=== PATIENT | female | born 1980 | race Hispanic/Latino ===

== ENCOUNTER → 2021-04-20 09:43 | Outpatient (CLI) | payer OTHER, SELFPAY ==
[2021-04-20 10:42] LABS: COVID19 -Nasal RAPID Negative (Negative)
== END ==
PROVIDERS: Visit Provider Obstetrics & Gynecology
DX: Z01.812 Encounter for preprocedural laboratory examination (principal); Z20.822 Contact with and (suspected) exposure to COVID-19
CPT/HCPCS: 87635

== ENCOUNTER 2021-04-21 08:56 | Day surgery (SDC) | payer OTHER, SELFPAY ==
[2021-04-18 13:10] VITALS: BMI 31.6
[2021-04-21] VITALS (7 sets, daily range): BP systolic 117–133; BP diastolic 61–78; PULSE 64–99; RESP 13–17; TEMP 36.9–37.3; O2SAT 97–100; BMI 31.6
--- NOTE | 2021-04-21 | PATH_ITS ---
[facility] Accession Number: [id number] . 01 Material submitted: . PART A: endocervix - ENDOCERVICAL MASS PART B: endometrium - ENDOMETRIAL CURETTINGS . 02 Diagnosis: A. 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 Negative for significant cytologic atypia, increased mitotic activity, or necrosis. . B. Endometrial Curettings: Portions of shedding endometrium; negative for glandular hyperplasia, cytologic atypia, or malignancy. Some endometrial fragments demonstrate prominent vessels, suggestive of polyp, if clinical and imaging studies are concordant. Polypoid portions of lower uterine segment; negative for glandular hyperplasia, cytologic atypia, or malignancy. [facility] 04/25/2021 1339 Local . 02 Electronically signed: . Elida Finnegan MD, Pathologist NPI- [id number] . 01 Gross description: . A. The specimen is received in formalin, labeled endocervical mass, and consists of a 2.5 x 2.0 x 1.8 cm, solis-pink, focally nodular fragment of soft tissue. The margin is inked blue. The specimen is serially sectioned and entirely submitted in cassettes A1-A4. B. The specimen is received in formalin, labeled endometrial curettings, and consists of multiple red-brown fragments of soft tissue measuring 3.0 x 2.5 x 0.6 cm in aggregate. The specimen is filtered and entirely submitted in cassette B1. ([id number]) /FRCordelia 04/22/2021 1624 Local . 02 Pathologist provided ICD-10: D25.9 . 02 CPT . 214416, [id number] Performed at: 01 [facility] [address] [place] [address], [place], [place] [id number] MD Ryan Garcia MD Phone: [phone] Performed at: 02 [facility] [address] [place] [id number] MD Vonda Hanley MD Phone: [phone]
[2021-04-21] MEDS: LACTATED RINGERS 1,000 ML 100 ML IV (10:01)
--- NOTE | 2021-04-21 11:41 | P.HPOB_ITS ---
History of Present Illness History of Present Illness Reason for admission: vaginal bleeding Narrative: Jennifer is a 40-year-old [place]-speaking , with several month history of abnormal uterine bleeding who presents today for evaluation in referral from her primary care provider, Dr. Deepa Krause, for evaluation and management of her abnormal bleeding which has been found to be associated with a prolapsed submucous/endocervical myoma. ? her periods have been heavy for many many years with flooding and over flows, and was found to be anemic which was thought to be secondary to her heavy periods. she was initiated on Depo-Provera in October and had daily spotting for the 1st month noted only on wiping and did need a knee need to use a pad but became heavier with clots in December and lower abdominal pain associated with odor and discharge. She was seen by an OBGYN? At [facility] who noted a prolapsed myoma and was scheduled for hysteroscopy and D&C with resection of the? prolapsed myoma.? Unfortunately due to insurance issues, she cannot continue her care at that facility and instead presents today for evaluation, and management here.? The patient is [place]- speaking only and the visit was conducted with the assistance of a remote telephonic [place]-speaking candy puller.? Records accompany the patient and her Pap smear is both normal and current.? Pelvic ultrasound performed 10/16/2020 showed the uterus to be 11 cm x 6.26 cm x 7.6 cm with an endometrial thickness of 11 mm.? The uterus was felt to be mildly enlarged but the endometrium was within normal physiologic limits.? A 1 cm intramural myoma was seen on the right side anteriorly but otherwise no abnormalities were seen. On exam however the patient is found to have a fleshy polypoid mass extending 2 cm beyond the external cervical os with the origin of the mass either endocervical or endometrial. With the assistance of a remote, telephonic [place]-speaking candy puller, the options regarding further evaluation and/ or management of her abnormal uterine bleeding which is almost certainly being caused by a friable, prolapsed endocervical /endometrial mass, presumably a fibroid, was discussed.? Written information in [place] was provided on the topics of hysteroscopy, uterine fibroids, and endometrial ablation. after consideration of all options, the patient has opted to have hysteroscopy with biopsy/resection of endometrial / endometrial mass, D and C, and endometrial ablation via NovaSure.? She presents today for her scheduled surgery. [facility] Medical History Abnormal uterine bleeding Microcytic anemia Migraine Obesity Prolactinoma, benign Submucous myoma of uterus Surgical History History of tubal ligation Family History Mother Hypertension Father Diabetes mellitus Hypertension Social History household members: spouse Smoking Status: Never smoker alcohol intake: never Meds Home Medications and Allergies Home Medications Medication Instructions Recorded Confirmed Type cabergoline 0.5 mg tablet 0.5 mg PO 2XW 03/17/21 04/21/21 History naproxen 500 mg tablet 500 mg PO BID 03/17/21 04/21/21 History Allergies Allergy/AdvReac Type Severity Reaction Status Date / Time No Known Drug Allergies Allergy Verified 04/21/21 09:17 Review of Systems Review of Systems Narrative: Problem-specific ROS positives included in HPI Exam Vital Signs (past 8 hours): - 04/21/21 09:45 Temperature 98.4 F Pulse Rate 66 Respiratory Rate 16 Blood Pressure 119/78 Pulse Oximetry 100 Oxygen Delivery Method Room Air Const General: cooperative Nutritional Appearance: overweight Orientation: alert and oriented x3 HENMT Head: normocephalic and atraumatic Ears: hearing grossly normal bilaterally Nose: external nose normal Face and sinus: face symmetric Mouth: oral mucosae normal Teeth and gingiva: dentition normal Throat: posterior oropharynx normal Eyes Conjunctivae: conjunctivae normal Sclera: sclerae normal EOM: EOM intact bilaterally Neck Neck: full ROM and trachea midline Thyroid: thyroid normal Lymphatic: No lymphadenopathy Resp Effort & Inspection: normal respiratory effort and able to speak in complete sentences Auscultation: clear to auscultation bilaterally Cardio Rate: regular rate Rhythm: regular rhythm Heart Sounds: S1 normal, S2 normal and no murmurs GI Inspection: normal to inspection Palpation: soft, no hepatosplenomegaly and No tender External Female Exam: normal external appearance Speculum Exam - Vagina: normal appearance of the vagina and abnormal vaginal discharge (Sanguinous mucousy) Speculum Exam - Cervix: cervical os open and other (Friable mass protruding through cervical os) Bimanual Exam- Vagina & Uterus: other (Unable to fully assess due to habitus) Bimanual Exam- Adnexa, other: other (Unable to assess due to habitus) OB/External & Speculum: cervical os open Psych Appearance: grossly normal Mental Status: mental status grossly normal Speech and Movement: speech and movement normal Mood: congruent mood Affect: normal affect Attitude: cooperative Thought Process: normal Thought Content: normal Judgment: judgment good Assessment & Plan Assessment and plan (1) Submucous myoma of uterus: Status: Acute (2) Abnormal uterine bleeding: Status: Acute Plan: The patient was counseled with the assistance of a remote telephonic [place]- speaking candy puller regarding the potential risks, alternatives, benefits, and complications associated with hysteroscopy with biopsies, dilation and curettage of the uterus, and endometrial ablation.? She expresses an understanding of all of the above, numerous questions were answered her satisfaction, and with full understanding a written consent in [place] was executed, signed, and witnessed 04/20/2021. Time Spent With Patient Time with patient: less than 30 minutes Critical Care time: I spent a total of [] minutes of critical care time on this patient's care today; this time is exclusive of procedural time.
--- NOTE | 2021-04-21 11:46 | PM.PREOP ---
Pre-operative Note COVID-19 COVID-19 status: Negative Result date/Date tested (Pos, Neg/Pending): 04/20/21 Interval Note History & Physical reviewed/Exam performed by Physician: Yes Changes to H&P: No
--- NOTE | 2021-04-21 12:21 | SUR.OPER ---
Lithotomy on padded OR bed, head on pillow, arms secured on padded arm boards at <90 degrees abduction. Legs secured in padded yellow fins stirrups.
[2021-04-21] MEDS: LORazepam 2 MG/ML INJ 0.25 MG IV (13:12)
--- NOTE | 2021-04-21 13:30 | PM.GYNOP.1 ---
Operative Date/Time/Diagnoses Date of procedure: 04/21/21 Time of procedure: 11:05 Procedure & Clinicians Procedure: Procedures Operation Date: 04/21/21 10:30 Actual Procedure Side Surgeon p Hysteroscopy D&C w/ excision of Endocervical Mass, and Endometrial Ablation Armando Fam MD Indications: Jennifer is a 40-year-old Malian-speaking , with several month history of abnormal uterine bleeding who presents today for evaluation in referral from her primary care provider, Dr. Deepa Krause, for evaluation and management of her abnormal bleeding which has been found to be associated with a prolapsed submucous/endocervical myoma. ? her periods have been heavy for many many years with flooding and over flows, and was found to be anemic which was thought to be secondary to her heavy periods. she was initiated on Depo-Provera in October and had daily spotting for the 1st month noted only on wiping and did need a knee need to use a pad but became heavier with clots in December and lower abdominal pain associated with odor and discharge. She was seen by an OBGYN? At [facility] who noted a prolapsed myoma and was scheduled for hysteroscopy and D&C with resection of the? prolapsed myoma.? Unfortunately due to insurance issues, she cannot continue her care at that facility and instead presents today for evaluation, and management here.? The patient is Malian-speaking only and the visit was conducted with the assistance of a remote telephonic Malian-speaking director sales and marketing.? Records accompany the patient and her Pap smear is both normal and current.? Pelvic ultrasound performed 10/16/2020 showed the uterus to be 11 cm x 6.26 cm x 7.6 cm with an endometrial thickness of 11 mm.? The uterus was felt to be mildly enlarged but the endometrium was within normal physiologic limits.? A 1 cm intramural myoma was seen on the right side anteriorly but otherwise no abnormalities were seen. On exam however the patient is found to have a fleshy polypoid mass extending 2 cm beyond the external cervical os with the origin of the mass either endocervical or endometrial. With the assistance of a remote, telephonic Malian-speaking director sales and marketing, the options regarding further evaluation and/ or management of her abnormal uterine bleeding which is almost certainly being caused by a friable, prolapsed endocervical /endometrial mass, presumably a fibroid, was discussed.? Written information in Malian was provided on the topics of hysteroscopy, uterine fibroids, and endometrial ablation. after consideration of all options, the patient has opted to have hysteroscopy with biopsy/resection of endometrial / endometrial mass, D and C, and endometrial ablation via NovaSure.? She presents today for her scheduled surgery. Surgeon: Armando Fam Anesthesia Type: General Operative Notes Findings: Upon inspection of the cervix using a speculum introduced into the vagina, a fleshy polypoid appearing mass is seen to protrude 2 cm beyond the external cervical os. With retraction, the broad base of the mass can be visualized and it is seen to be arising from the posterior aspect of the endocervical canal approximately 2.5 cm cephalad of the external os. Once the mass had been removed, visualization of the upper endocervical canal was unremarkable and the endometrium had no focal lesions but was instead a shaggy, thick endometrial surface. Abundant endometrial curettings were obtained and submitted. The smooth, non-distorted endometrial cavity sounded to a depth of 9 cm. Post ablation visualization of the cavity showed good, diffuse ablation effects. Closure Type: not applicable Specimen(s): endometrial curettings and other (Endocervical mass, excised) Estimated blood loss (mL): 50 Blood products transfused: none Procedure in detail: With the patient under satisfactory general endotracheal anesthesia in the modified dorsal lithotomy position, the perineum, vagina, and abdomen were prepped and draped in the usual manner for hysteroscopic surgery. A pre operative safety time-out was taken in accordance with [facility] OR protocol. A bivalve speculum was placed in the vagina and the cervix visualized with the findings as noted above. Once the location of the mass' base had been established, excision of the mass at its base was easily accomplished using electrocautery. Once the mass had been removed the endocervix was inspected with the hysteroscope and using sterile saline as a distention medium, the endometrial cavity was inspected with the findings as noted above. Aside from the shaggy endometrium, the endometrial cavity itself was unremarkable and nondistended. Following performance of a D&C with abundant endometrial curettings obtained, the NovaSure device was introduced into the endometrial cavity with the depth of 6.5 cm and width of 4.6 cm. Cavity integrity testing was confirmatory, and the NovaSure device activated. Duration of the ablation was greater than 65 seconds and following ablation the NovaSure device was removed from the endometrial cavity without difficulty. Examination of the post ablation cavity showed that there was good, diffuse affect of the ablation. The hysteroscope was removed and the single-tooth tenaculum which had been applied to the anterior lip of the cervix, was removed. There was significant bleeding noted from the left sided puncture and a single 2-0 chromic [id number] stitch was used to control that bleeding point. At that point the speculum was removed from the vagina and the patient awakened. She was then transferred to the PACU for a period of recovery having tolerated the procedure well. Complications: none Post-operative Condition: stable Disposition: PACU Plan for aftercare: Routine postoperative care with same-day discharge from PACU when stable.
[2021-04-21] MEDS: OXYCODONE/ACETAMINOPHEN 5/325 TABLET 1 TAB PO (14:15)
[2021-04-21 15:43] LABS: Add Manual Diff / Slide Review NO; Basophils Absolute Auto 0 /uL (0-100); Basophils Percent Auto 0.7 % (0-2); Eosinophils Absolute Auto 0 /uL (0-450); Eosinophils Percent Auto 0.5 % (2-4); Hematocrit 32.8 % (36-46); Hemoglobin 10.2 g/dL (12.0-16.0); Lymphocytes Absolute Auto 1100 /uL (1100-4500); Lymphocytes Percent Auto 26.6 % (25-40); Mean Corpuscular HGB Conc 31.2 % (30-36); Mean Corpuscular Hemoglobin 24.5 PG (26-34); Mean Corpuscular Volume 78.5 fL (80-100); Monocytes Absolute Auto 100 /uL (0-900); Monocytes Percent Auto 2.6 % (3-14); Neutrophils Absolute Auto 2700 /uL (1500-7000); Neutrophils Percent Auto 69.6 % (50-75); Platelet Count 288 X10^3/uL (150-400); Red Blood Cell Count 4.18 X10^6/uL (4.0-5.2); Red Cell Distribution Width 18.2 % (11.6-14.8); White Blood Cell Count 3.9 X10^3/uL (4.5-11.0)
== END 2021-04-21 14:35 | disposition home or self-care (01) ==
PROVIDERS: Referring Provider Obstetrics & Gynecology; Visit Provider Obstetrics & Gynecology
PROC: 0U5B8ZZ Destruction of Endometrium, Via Natural or Artificial Opening Endoscopic (ICD-10-PCS; CPT 58563; principal; 2021-04-21 10:30)
DX: N93.9 Abnormal uterine and vaginal bleeding, unspecified; N92.0 Excessive and frequent menstruation with regular cycle; D50.9 Iron deficiency anemia, unspecified; E66.9 Obesity, unspecified
CPT/HCPCS: 58563; 36415; 81025; 82962; 85025; J1100; J1885; J2060; J2250; J2405; J2704; J3010